=== PATIENT | female | born 1965 ===

== ENCOUNTER 2025-01-09 09:00 | Day surgery (SDC) | payer OTHER ==
[2025-01-09] MEDS ORDERED: DIPHENHYDRAMINE HCL 50 MG/ML VIAL 1ML IV ONE (10:30)
[2025-01-09] MEDS ORDERED: MIDAZOLAM HCL 2 MG/2 ML VIAL IV ONE (10:30)
[2025-01-09] MEDS ORDERED: fentaNYL CITRATE 50 MCG/ML AMPUL IV ONE (10:30)
== END 2025-01-09 12:35 | disposition home or self-care (01) ==
LOC: AMB-ENDOS 09:00
PROVIDERS: ATTEND Internal Medicine Gastroenterology
DX: C16.1 Malignant neoplasm of fundus of stomach (principal); K31.7 Polyp of stomach and duodenum; K29.40 Chronic atrophic gastritis without bleeding; K63.5 Polyp of colon; Z86.0100 Personal history of colon polyps, unspecified